=== PATIENT | female | born 2000 ===

== ENCOUNTER → 2023-02-21 | Outpatient (CLI) | payer OTHER ==
[~2023-02-21] MED LIST: AMOX50SU PO; CODACEE120 PO; FLORIDE; MULT50L PO; MULTCH; PRED15SY PO
== END | disposition home or self-care (01) ==
LOC: LAB 17:46 → LAB SHORT 17:46
DX: M54.89 Other dorsalgia (principal); R10.30 Lower abdominal pain, unspecified
CPT/HCPCS: 87077; 87086; 87186